=== PATIENT | male | born 1985 ===

== ENCOUNTER → 2018-09-08 | Outpatient (REF) | payer OTHER ==
[2018-09-08 12:17] LABS: PLATELET COUNT, AUTOMATED 207 10^3/uL (150-450)
[2018-09-08 12:26] LABS: INR 0.94; PROTHROMBIN TIME 12.7 SECONDS (12.1-14.4)
[2018-09-08 12:27] LABS: PARTIAL THROMBOPLASTIN TIME 26.5 SECONDS (25.4-37.6)
== END ==
LOC: M LABDRAW1 10:58
DX: Z01.812 Encounter for preprocedural laboratory examination (principal)
CPT/HCPCS: 85049